=== PATIENT | male | born 1960 ===

== ENCOUNTER → 2023-08-01 12:35 | Outpatient (REF) | payer BC, SELFPAY ==
--- NOTE | 2023-08-01 12:54 | CA_ITS ---
Transthoracic Echocardiogram Patient (Last, First, Middle): Mahad Armstrong, Gender: Male Date of : 1960 Age: 62 Procedure Date: 08/01/2023 Procedure Type: Transthoracic Echocardiogram Location: OP Height: 172.72 cm Weight: 65.77 kg BSA: 1.78 m2 Heart Rate: 64 bpm BP: 142 / 82 mmHg [employer] Wood: STACIA Referring MD: Luz Nichole MD Symptoms: AORTIC STENOSIS Study Quality: Adequate ECG Rhythm: Sinus Conclusions: - The left ventricular systolic function is normal. The calculated ejection fraction is 68% by biplane method. - There is severe aortic valve stenosis. The peak aortic velocity is 4.27 m/s with a calculated peak gradient of 73 mmHg. The mean gradient is 42 mmHg. The aortic valve area is 0.92 cm2. There is no aortic valve regurgitation. Suspect calcified bicuspid aortic valve. Findings Left Ventricle Normal left ventricular cavity size. The left ventricular systolic function is normal. The calculated ejection fraction is 68% by biplane method. There is no evidence of regional wall motion abnormalities. Diastolic function is normal for age. There is mild septal asymmetric hypertrophy. Right Ventricle Mildly increased right ventricular cavity size. There is normal right ventricular systolic function. Atria Both atria are normal in size. Aortic Valve There is severe aortic valve stenosis. The peak aortic velocity is 4.27 m/s with a calculated peak gradient of 73 mmHg. The mean gradient is 42 mmHg. The aortic valve area is 0.92 cm2. There is no aortic valve regurgitation. Suspect calcified bicuspid aortic valve. Mitral Valve The mitral valve appears normal. There is no mitral valve regurgitation. There is no mitral valve stenosis. Pulmonic Valve The pulmonic valve is likely normal. Tricuspid Valve Normal tricuspid valve structure. There is no tricuspid valve regurgitation. Tricuspid regurgitation envelope is inadequate for calculation of right ventricular systolic pressure. Great Vessels The asc aorta is normal in size. Venous The inferior vena cava is normal in size and collapses greater than 50% with inspiration. Pericardium/Pleural There is no evidence of pericardial effusion. Prior Study Comparison No prior study available for comparison. Message sent to . Measurements 2D Linear Measurements IVSd: 1.30 0.6-0.9/0.6-1.0 cm LVIDd: 4.89 3.9-5.3/4.2-5.9 cm LVIDd Index: 2.75 2.4-3.2/2.2-3.1 cm/m2 LVIDs: 2.86 2.0-3.6 cm LVPWd: 0.73 0.7-1.1 cm LA Diam: 4.20 2.7-3.8/3.0-4.0 cm LAIDs Index: 2.36 1.5-2.3 cm/m2 LV Mass: 223.02 67-162/88-224 g LV Mass Index: 125.29 43-95/49-115 g/m2 LVOT Diam: 2.10 3.0+(-)1.3 cm 2D Systolic Function EF 4C: 62.10 >55% EF 2C: 71.70 >55% EF BiP: 67.50 >55% Mitral Valve MV Pk E: 0.76 MV PK A: 0.76 MV Decel Time: 154.00 E/A: 1.00 E'Lateral: 7.40 E'Medial: 6.36 E/E' Med: 11.90 E/E' Lat: 10.20 PHT: 45.00 MVA PHT: 4.89 Decel [place]: 4.92 Aortic Valve AoV Pk Shaun: 4.27 AoV Mn Shaun: 3.08 AoV VTI: 1.00 AoV Pk Grad: 73.00 Aov Mn Grad: 42.00 LIBERTY Cont.VTI: 0.92 LVOT LVOT Pk Shaun: 1.02 LVOT Mn Shaun: 0.79 LVOT VTI: 0.27 LVOT Pk Grad: 4.00 LVOT Mn Grad: 3.00 LVOT Diam: 2.10 LVOT Area: 3.46 Diastolic Function MV Pk E: 0.76 MV Pk A: 0.76 E/A: 1.00 E'Medial: 6.36 E/E' Med: 11.90 E' Laterial: 7.40 E/E' Lat: 10.20 Right Ventricle TAPSE (mm): 24.80 TVS' Shaun: 14.00 Tricuspid Valve RA Press: 8.00 Great Vessels Aorta Sinus of Valsalva: 2.50 2.0-3.5 cm Ao Asc: 3.40 2.1-3.4 cm Pulmonary Veins Pulm Vein S/D 1.60 Pulmonary Valve PV Pk Shaun: 1.18 Peak PV Grad: 6.00 Updated in Other Vendor System with Status of Final Harpreet Morales MD electronically signed on 08/02/2023 9:31:00 AM with status of Final
== END ==
LOC: HO.CARD 12:35
PROVIDERS: Visit Provider Internal Medicine Cardiovascular Disease
DX: I35.0 Nonrheumatic aortic (valve) stenosis (principal)
CPT/HCPCS: 93306

== ENCOUNTER → 2023-08-01 12:54 | Outpatient (BNV) | payer BC, SELFPAY | PROVIDERS: Visit Provider Internal Medicine | DX: I35.0 Nonrheumatic aortic (valve) stenosis (principal) | CPT/HCPCS: 93306 ==